=== PATIENT | male | born 1990 | race Caucasian/White ===

== ENCOUNTER 2021-05-18 06:55 | Emergency (ER) | payer OTHER, SELFPAY ==
--- NOTE | ~2021-05-18 | XR_ITS ---
EXAMINATION: XR PELVIS CLINICAL INFORMATION: Left hip pain. COMPARISON: None TECHNIQUE: AP view of the pelvis. FINDINGS: Limited evaluation, likely secondary to body habitus. There is no gross evidence of fracture. The hips are aligned. The pelvic rim appears intact. The pubic symphysis is well aligned. XR/XR pelvis 1-2V IMPRESSION: Significantly limited evaluation. No gross evidence of fracture or malalignment
--- NOTE | ~2021-05-18 | XR_ITS ---
EXAMINATION: XR CHEST CLINICAL INFORMATION: Fall COMPARISON: None TECHNIQUE: 2 views of the chest were obtained. FINDINGS: The lungs are well expanded. There is no focal consolidation, edema, or effusion. No pneumothorax. The cardiomediastinal silhouette is within normal limits. No acute osseous abnormality. XR/XR chest 2V IMPRESSION: Clear lungs. No displaced fractures.
--- NOTE | ~2021-05-18 | XR_ITS ---
EXAMINATION: XR LUMBOSACRAL SPINE CLINICAL INFORMATION: Fall COMPARISON: None TECHNIQUE: 2 views, 3 images of the lumbosacral spine. FINDINGS: Significantly limited evaluation due to body habitus. Slight levoscoliosis. Vertebral body alignment appears maintained. Vertebral body heights are grossly maintained. No definite fracture seen. XR/XR lumbar spine 2-3V IMPRESSION: Significantly limited evaluation. No gross evidence of fracture or malalignment.
[2021-05-18 07:06] VITALS: BP 153/64; PULSE 70; RESP 18; TEMP 36.6; O2SAT 99; BMI 84.4
[2021-05-18 07:11] VITALS: BP 111/84; PULSE 80; O2SAT 100
--- NOTE | 2021-05-18 07:11 | ED_ITS ---
HPI - Fall General Chief Complaint: Fall Stated Complaint: fall Time Seen by Provider: 05/18/21 06:58 Source: patient and EMS Mode of arrival: EMS Limitations: no limitations History of Present Illness HPI Narrative: slipped on ice outside of work due to lack of salt complaint: fall Onset (ago): minute(s) Fall from: standing Fall witnessed: yes, by bystander Place fall occurred: work Loss of consciousness: none Prolonged down time: no Symptoms prior to fall: none Context: tripped/slipped Location of injury: back and pelvis Location of injury - extremities: left: thigh Severity: mild Quality: aching Associated symptoms (after fall): other (difficulty walking) Related Data Previous Rx's Medication Instructions Recorded ibuprofen 600 mg tablet 600 mg PO Q6H PRN #30 tab 05/18/21 Allergies Allergy/AdvReac Type Severity Reaction Status Date / Time No Known Allergies Allergy Verified 05/18/21 07:07 Review of Systems Review of Systems: Constitutional : No Fever, No Chills ENT/Mouth : No Ear Pain, No Hoarseness, No sore throat Eyes: No Eye Pain, No Swelling, No Redness, No Foreign Body Cardiovascular : No Chest Pain, No SOB Respiratory : No Cough, No Dyspnea Gastrointestinal : No Nausea, No Vomiting, No Diarrhea, No abdominal Pain Genitourinary : No Dysuria, No Hematuria Musculoskeletal : positive joint pain, No Myalgias, No Joint Swelling, pos back pain Skin : No Skin lacerations, No rash Neuro : No Weakness, No Numbness, No Loss of Consciousness, No Dizziness, No Headache Psych : No Anxiety/Panic, No Depression Heme/Lymph: no easy bruising, no Lymphadenopathy Endocrine : No Polyuria, No Polydipsia All other systems reviewed and are negative [facility] Past Medical History Medical History HTN (hypertension) Social History Social History (Updated 05/18/21 @ 07:15 by Alejandra Mendoza DO) Patient Tobacco Use Status: Never used Tobacco Use of substances other than those prescribed or required for medical reasons: No Advance Directives: No Advance Directives Information Provided: No Physical Exam Vital Signs: Vital Signs: Last Vital Signs Temp 98 F 05/18/21 07:06 Pulse 70 05/18/21 07:06 Resp 18 05/18/21 07:06 BP 153/64 H 12/09/21 07:06 Pulse Ox 99 05/18/21 07:06 BMI result Body Mass Index 84.4 Appearance: Alert. Oriented X3. No acute distress. Eyes: Pupils equal, round and reactive to light. ENT: Pharynx normal. Neck: Normal inspection. Neck supple. CVS: Normal heart rate and rhythm. Pulses normal. Respiratory: No respiratory distress. Breath sounds normal. Abdomen: Soft and nontender. Obese Back: ttp lower back Skin: Skin warm and dry. Normal skin color. Extremities: No lower extremity edema. L hip reports prox ttp distal NV intact Neuro: Oriented X 3. No motor deficit. No sensory deficit. Course Course Course Narrative: no acute fractures seen - able to ambulate stable for DC MDM - Fall MDM Narrative Medical decision making narrative: 30 yo male with HTN no AC therapy here with slip and fall outside at work due to ice comes in with back and L hip pain he is NV intact did not hit head no AC therapy at this time will need xrays of L hip/back/CXR - PO motrin. Dispo per results and findings. Discharge Plan Discharge Clinical Impression: Muscle strain of left hip Qualifiers: Encounter type: initial encounter Qualified Code(s): S76.012A - Strain of muscle, fascia and tendon of left hip, initial encounter Lower back pain Qualifiers: Chronicity: acute Back pain laterality: bilateral Sciatica presence: without sciatica Qualified Code(s): M54.50 - Low back pain, unspecified Patient Disposition: Home, Self-Care Instructions: Muscle Strain (ED), Acute Low Back Pain (ED) Additional Instructions: return to ED for any worsening symptoms or concerns xrays of left hip, lower and upper back normal no acute fractures Prescriptions: New ibuprofen 600 mg tablet 600 mg PO Q6H PRN (Reason: pain) Qty: 30 RF: 0 Referrals: Pedro Herndon MD [Primary Care Provider] - 2 days (if not better) Stand Alone Forms: Work/School Release
[2021-05-18] MEDS: Ibuprofen 600 MG TABLET PO (07:28)
== END 2021-05-18 08:53 | disposition home or self-care (01) ==
PROVIDERS: Emergency Provider Emergency Medicine; PCP Internal Medicine
DX: S76.012A Strain of muscle, fascia and tendon of left hip, initial encounter (principal); W00.0XXA Fall on same level due to ice and snow, initial encounter; Y93.01 Activity, walking, marching and hiking; M54.50 Low back pain, unspecified; Y92.481 Parking lot as the place of occurrence of the external cause; Y99.0 Civilian activity done for income or pay
CPT/HCPCS: 71046; 72100; 72170; 99283